=== PATIENT | female | born 1970 | race Caucasian/White ===

== ENCOUNTER 2018-09-03 11:19 | Inpatient (IN) | payer MEDICAID ==
[~2018-09-03] VITALS: Ht 160 cm; Wt 81.6 kg
[~2018-09-03 11:19] MED LIST: ESCI10TA PO; GLU500 PO; LISI20TA PO; LORA10TA68 PO
[2018-09-03 11:24] VITALS: BP_SYST 126
[2018-09-03] MEDS ORDERED: fentaNYL CITRATE/PF 100 MCG/2 ML AMP IM ONE (12:30)
[2018-09-03] MEDS ORDERED: ONDANSETRON HCL 4 MG/2 ML VIAL IVP ONE ×2 (12:30→15:30)
[2018-09-03] MEDS ORDERED: KETOROLAC TROMETHAMINE 60 MG/2 ML VIAL IM ONE (12:30)
[2018-09-03] MEDS ORDERED: DIAZEPAM 5 MG TABLET (VALIUM) PO ONE (12:45)
[2018-09-03] MEDS ORDERED: KETOROLAC TROMETHAMINE 30 MG VIAL IVP ONE (13:00)
[2018-09-03] MEDS ORDERED: fentaNYL CITRATE/PF 100 MCG/2 ML AMP IVP ONE (13:00)
[2018-09-03] MEDS ORDERED: KETOROLAC TROMETHAMINE 30 MG VIAL ONE (13:02)
[2018-09-03] MEDS ORDERED: methylPREDNISolone SOD SUCC/PF 62.5 MG/ML VIAL IVP ONE (15:15)
[2018-09-03] MEDS ORDERED: MORPHINE 4 MG/ML INJ. SYRINGE IVP ONE (15:30)
[2018-09-03] MEDS ORDERED: MORPHINE 2 MG/ML INJ. SYRINGE IVP ONE (15:30)
[2018-09-03 20:44] VITALS: BP_SYST 137
[2018-09-03] MEDS ORDERED: PRAV40TA63 PO (23:36)
[2018-09-04] VITALS (7 sets, daily range): BP systolic 97–137
[2018-09-04] MEDS ORDERED: ALBUTEROL SULFATE 0.083% 2.5 MG/3 ML VIAL.NEB INH PRN
[2018-09-04] MEDS ORDERED: LISINOPRIL 20 MG TABLET PO ONE (00:30)
[2018-09-04] MEDS: CYCLOBENZAPRINE HCL 10 MG TABLET (FLEXERIL) PO SCH ×4 (02:46→20:57)
[2018-09-04] MEDS: INSULIN ASPART 100 UNITS/ML, 10 ML VIAL (NovoLOG) SUBCUT PRN ×2 (06:19→21:01)
[2018-09-04 07:04] LABS: BASOPHILS % (AUTO) 0.2 % (0.0-2.0); EOSINOPHILS % (AUTO) 0.1 % (0.0-4.0); HEMATOCRIT 33.6 % (36-48); HEMOGLOBIN 10.9 g/dL (12.0-16.0); LYMPHOCYTES # (AUTO) 1.5 K/uL (1.0-5.5); LYMPHOCYTES % (AUTO) 18.5 % (20.5-51.5); MEAN CORPUSCULAR HEMOGLOBIN 27 pg (27-31); MEAN CORPUSCULAR HGB CONC 32 % (32-36); MEAN CORPUSCULAR VOLUME 84 fL (79.0-98.0); MONOCYTES # (AUTO) 0.4 K/uL (0.0-1.0); MONOCYTES % (AUTO) 5.5 % (1.7-9.3); NEUTROPHILS % (AUTO) 75.7 % (40.0-70.0); PLATELET COUNT (AUTO) 279 K/uL (130-430); RED BLOOD CELL COUNT(AUTO) 3.99 MIL/uL (4.2-6.2); RED CELL DISTRIBUTION WIDTH 14.9 % (9.0-15.0); WHITE BLOOD COUNT (AUTO) 7.9 K/uL (4.8-10.8)
[2018-09-04 07:24] LABS: ALBUMIN 2.8 g/dL (3.4-4.8); CREATININE 0.67 mg/dL (0.55-1.30); POTASSIUM 4.6 mmol/L (3.5-5.1); TOTAL BILIRUBIN 0.2 mg/dL (0.0-1.0)
[2018-09-04] MEDS: LORATADINE 10 MG TABLET PO SCH (08:06)
[2018-09-04] MEDS: CITALOPRAM HYDROBROMIDE 20 MG TABLET PO SCH (08:06)
[2018-09-04] MEDS ORDERED: PRAVASTATIN SODIUM 20 MG TABLET (PRAVACHOL) PO SCH (09:00)
[2018-09-04] MEDS ORDERED: ESCITALOPRAM OXALATE 10 MG TABLET PO SCH (09:00)
[2018-09-04] MEDS: HYDROmorphone 2 MG/ML VIAL IVP PRN ×2 (12:33→23:41)
[2018-09-04] MEDS ORDERED: ATORVASTATIN 10 MG TABLET PO SCH (21:00)
[2018-09-05 07:29] VITALS: BP_SYST 95
[2018-09-05] MEDS: CITALOPRAM HYDROBROMIDE 20 MG TABLET PO SCH (08:09)
[2018-09-05] MEDS: LORATADINE 10 MG TABLET PO SCH (08:09)
[2018-09-05] MEDS: CYCLOBENZAPRINE HCL 10 MG TABLET (FLEXERIL) PO SCH (08:09)
[2018-09-05 11:26] VITALS: BP_SYST 107
[2018-09-05 13:35] VITALS: BP_SYST 104
== END 2018-09-05 14:15 | disposition home or self-care (01) | DRG 351 ==
LOC: SED 11:19 → SMU 18:10
PROVIDERS: ADMIT Internal Medicine; ATTEND Internal Medicine
DX: S39.012A Strain of muscle, fascia and tendon of lower back, initial encounter (principal); E44.1 Mild protein-calorie malnutrition; E11.9 Type 2 diabetes mellitus without complications; E78.5 Hyperlipidemia, unspecified; F32.9 Major depressive disorder, single episode, unspecified; R26.2 Difficulty in walking, not elsewhere classified; X58.XXXA Exposure to other specified factors, initial encounter; I10 Essential (primary) hypertension; Z87.828 Personal history of other (healed) physical injury and trauma; Z83.3 Family history of diabetes mellitus; Z90.49 Acquired absence of other specified parts of digestive tract; Z91.041 Radiographic dye allergy status; Z79.899 Other long term (current) drug therapy; Y93.89 Activity, other specified; Y92.89 Other specified places as the place of occurrence of the external cause; Y99.8 Other external cause status
CPT/HCPCS: 36415; 72110; 72131; 72148; 80053; 82962; 85025; 96374; 96375; 96376; 97116-GP; 97530-GP; 99285; J1170; J1815; J1885; J2270; J2405; J2930; J3010

== ENCOUNTER 2024-04-28 23:35 | Inpatient (IN) | payer MEDICAID ==
[~2024-04-28] VITALS: Ht 160 cm; Wt 83.0 kg
[~2024-04-28 23:35] MED LIST changes: +PRAV40TA63 PO
[2024-04-28 23:42] VITALS: BP_SYST 173; PULSE 80; RESP 20; TEMP 98; O2SAT 98
[2024-04-29] VITALS (7 sets, daily range): BP systolic 132–154; PULSE 68–97; RESP 14–18; TEMP 97.5–97.7; O2SAT 94–100
[2024-04-29 00:06] LABS: BASOPHILS # (AUTO) 0.1 K/uL (0.0-0.2); BASOPHILS % (AUTO) 0.6 % (0.0-2.0); EOSINOPHILS # (AUTO) 0.4 K/uL (0.0-0.4); EOSINOPHILS % (AUTO) 4.3 % (0.0-4.0); HEMATOCRIT 39.3 % (36-48); HEMOGLOBIN 14.1 g/dL (12.0-16.0); LYMPHOCYTES # (AUTO) 3.5 K/uL (1.0-5.5); LYMPHOCYTES % (AUTO) 35.8 % (20.5-51.5); MEAN CORPUSCULAR HEMOGLOBIN 31 pg (27-31); MEAN CORPUSCULAR HGB CONC 36 % (32-36); MEAN CORPUSCULAR VOLUME 85 fL (79.0-98.0); MONOCYTES # (AUTO) 0.8 K/uL (0.0-1.0); MONOCYTES % (AUTO) 7.7 % (1.7-9.3); NEUTROPHILS # (AUTO) 5.1 K/uL (1.8-7.7); NEUTROPHILS % (AUTO) 51.6 % (40.0-70.0); PLATELET COUNT (AUTO) 249 K/uL (130-430); RED BLOOD CELL COUNT(AUTO) 4.62 MIL/uL (4.2-6.2); RED CELL DISTRIBUTION WIDTH 14.3 % (9.0-15.0); WHITE BLOOD COUNT (AUTO) 9.9 K/uL (4.8-10.8)
[2024-04-29 00:27] LABS: ALANINE AMINOTRANSFERASE 34 U/L (12-78); ALBUMIN 3.5 g/dL (3.4-4.8); ANION GAP 5 (5-15); ASPARTATE AMINOTRANSFERASE 21 U/L (10-37); CALCIUM 9.5 mg/dL (8.4-11.0); CARBON DIOXIDE 30 mmol/L (23-29); CHLORIDE 105 mmol/L (98-107); CREATININE 0.87 mg/dL (0.55-1.30); GFR AFRICAN AMERICAN 87 mL/min (>90); GLUCOSE 183 mg/dL (74-106); POTASSIUM 3.8 mmol/L (3.5-5.1); SODIUM SERUM 140 mmol/L (136-145); TOTAL BILIRUBIN 0.3 mg/dL (0.0-1.0); TOTAL PROTEIN, SERUM 7.5 g/dL (6.4-8.3); UREA NITROGEN, BLOOD 12 mg/dL (8-21)
[2024-04-29 00:29] LABS: GFR NON AFRICAN-AMERICAN 72 mL/min (>90)
[2024-04-29 00:30] LABS: BILIRUBIN,DIRECT 0.1 mg/dL (0.0-0.3)
[2024-04-29] MEDS: ALTEPLASE 100 MG VIAL IVP ONE (01:04)
[2024-04-29] MEDS: ALTEPLASE 100 MG VIAL IV ONE (01:07)
[2024-04-29] MEDS ORDERED: ACETAMINOPHEN 500 MG TABLET ONE (01:35)
[2024-04-29] MEDS: ACETAMINOPHEN 500 MG TABLET PO ONE (01:36)
[2024-04-29] MEDS ORDERED: INSU100I26 SQ (02:38)
[2024-04-29] MEDS ORDERED: SEMA1PEN3 (02:39)
[2024-04-29] MEDS ORDERED: LIP20 PO (02:40)
[2024-04-29] MEDS: D5NS 1,000 ML IV SCH (07:36)
[2024-04-29] MEDS ORDERED: DEXTROSE 50%-WATER 50 ML DISP.SYRIN IVP PRN (11:00)
[2024-04-29] MEDS: NACL 0.9% 1,000 ML IV SCH (11:02)
[2024-04-29] MEDS: ATORVASTATIN 20 MG TABLET PO SCH (11:02)
[2024-04-29] MEDS: ASPIRIN 81 MG TAB.CHEW PO ONE (11:02)
[2024-04-29] MEDS: CLOPIDOGREL BISULFATE 75 MG TABLET PO SCH (11:02)
[2024-04-29] MEDS: INSULIN REGULAR, HUMAN 100 UNITS/ML, 3 ML VIAL (humuLIN R) SUBCUT PRN (11:14)
[2024-04-29] MEDS ORDERED: GADOBENATE DIMEGLUMINE 529 MG/ML, 5 ML VIAL IV ONE (14:36)
[2024-04-29] MEDS ORDERED: ACETAMINOPHEN 325 MG TABLET PO PRN ×3 (15:45→16:00)
[2024-04-29] MEDS: ACETAMINOPHEN 325 MG TABLET PO PRN (15:56)
[2024-04-29 19:13] LABS: CHOLESTEROL 148 mg/dL (<200); HDL CHOLESTEROL 57 mg/dL (>55); TRIGLYCERIDES 132 mg/dL (30-150)
[2024-04-29 20:06] LABS: CREATINE KINASE, TOTAL 62 U/L (26-192)
[2024-04-29] MEDS ORDERED: INSULIN REGULAR, HUMAN 100 UNITS/ML, 3 ML VIAL (humuLIN R) SUBCUT PRN (23:00)
[2024-04-30] VITALS: BP_SYST 130; PULSE 96; RESP 18; TEMP 97.2; O2SAT 64; O2SAT 98
[2024-04-30 04:00] VITALS: BP_SYST 136; PULSE 68; RESP 18; O2SAT 98
[2024-04-30 07:44] LABS: BASOPHILS % (AUTO) 0.5 % (0.0-2.0); EOSINOPHILS # (AUTO) 0.2 K/uL (0.0-0.4); EOSINOPHILS % (AUTO) 3.3 % (0.0-4.0); HEMATOCRIT 35.7 % (36-48); LYMPHOCYTES # (AUTO) 2.6 K/uL (1.0-5.5); LYMPHOCYTES % (AUTO) 38.6 % (20.5-51.5); MEAN CORPUSCULAR HEMOGLOBIN 29 pg (27-31); MEAN CORPUSCULAR HGB CONC 34 % (32-36); MEAN CORPUSCULAR VOLUME 86 fL (79.0-98.0); MONOCYTES # (AUTO) 0.5 K/uL (0.0-1.0); MONOCYTES % (AUTO) 6.8 % (1.7-9.3); NEUTROPHILS # (AUTO) 3.4 K/uL (1.8-7.7); NEUTROPHILS % (AUTO) 50.8 % (40.0-70.0); PLATELET COUNT (AUTO) 214 K/uL (130-430); RED BLOOD CELL COUNT(AUTO) 4.14 MIL/uL (4.2-6.2); RED CELL DISTRIBUTION WIDTH 14.1 % (9.0-15.0); WHITE BLOOD COUNT (AUTO) 6.8 K/uL (4.8-10.8)
[2024-04-30 07:45] LABS: ALBUMIN 2.8 g/dL (3.4-4.8); CALCIUM 8.8 mg/dL (8.4-11.0); CREATININE 0.6 mg/dL (0.55-1.30); POTASSIUM 3.7 mmol/L (3.5-5.1); TOTAL BILIRUBIN 0.6 mg/dL (0.0-1.0); TOTAL PROTEIN, SERUM 6.1 g/dL (6.4-8.3)
[2024-04-30 08:00] VITALS: BP_SYST 142; PULSE 67; RESP 17; TEMP 97.9; O2SAT 98
[2024-04-30] MEDS: IBUPROFEN 400 MG TABLET PO PRN (12:42)
[2024-04-30] MEDS ORDERED: ASPI-1393 PO (13:22)
[2024-04-30 13:34] VITALS: BP_SYST 136; PULSE 71; RESP 14; TEMP 98
[2024-04-30 16:00] VITALS: BP_SYST 136; PULSE 71; RESP 14; TEMP 98; O2SAT 98
== END 2024-04-30 17:35 | disposition home or self-care (01) | DRG 47 ==
LOC: SED 23:35 → STU 04-29 06:05
PROVIDERS: ADMIT Student in an Organized Health Care Education/Training Program; ATTEND Specialist
DX: G45.9 Transient cerebral ischemic attack, unspecified (principal); E11.9 Type 2 diabetes mellitus without complications; I10 Essential (primary) hypertension; E78.5 Hyperlipidemia, unspecified; Z91.041 Radiographic dye allergy status
CPT/HCPCS: 36415; 70450-TC; 70551; 70553; 71045; 80048; 80053; 80061; 80076; 82550; 82948; 83037; 83605; 83880; 84484; 85025; 85379; 86886; 86900; 86901; 87040; 87186; 92610-GN; 93306; 93880; 97112-GP; 97116-GP; 99285; A9577; G0378; J1815; J2997; J7030